=== PATIENT | male | born 1980 | race African-American/Black ===

== ENCOUNTER 2018-04-03 03:58 | Emergency (ER) | payer OTHER ==
[2018-04-03 04:14] VITALS: BP 127/87; PULSE 70; TEMP 98.7; BMI 26.4
[2018-04-03] MEDS ORDERED: ALBUTEROL SO4 2.5/IPRATROPIUM 0.5 INH SOL 3 ML VIAL.NEB. NEB ONE (04:15)
[2018-04-03] MEDS ORDERED: ALBUTEROL SO4 0.083% IH SOL 2.5 MG/3 ML VIAL.NEB. NEB ONE (04:23)
[2018-04-03] MEDS ORDERED: predniSONE 20 MG TABLET (UD) PO ONE (04:23)
[2018-04-03] MEDS ORDERED: predniSONE 20 MG TABLET (UD) ONE (04:27)
--- NOTE | 2018-04-03 04:27 | PDOC ---
History of Present Illness - General Chief Complaint: Pain Stated Complaint: bilat feet pain History Source: Patient Exam Limitations: No Limitations - History of Present Illness Initial Comments: 04/03/18 04:22 This is a 37 her old male who comes in complaining of exacerbation of his asthma. Patient said that he ran out of his albuterol. Patient otherwise denies any fevers, chills, chest pain, nausea vomiting or diarrhea. Patient is also complaining of bilateral foot pain. PAST MEDICAL HISTORY: no significant history PAST SURGICAL HISTORY: no significant history FAMILY HISTORY: no pertinant history SOCIAL HISTORY: Pt lives with family and is employed. MEDICATIONS: reviewed ALLERGIES: As per nursing notes Review of Systems General: No fevers or chills, no weakness, no weight loss HEENT: No change in vision. No sore throat,. No ear pain CardioVascular: No chest pain or shortness of breath Respiratory:No cough, or wheezing. Gastrointestinal: no nausea, vomitting, diarrhea or constipation, No rectal bleeding Genitourinary: No dysuria, hematuria, or frequency Musculoskeletal: No joint or muscle pain or swelling Neurologic: No headache, vertigo, dizziness or loss of consciousness Psychiatric: nor depression Skin: No rashes or easy bruising Endocrine: no increased thirst or abnormal weight change Allergic: no skin or latex allergy All other systems reviewed and normal Exam: General: Well-nourished well-developed individual, no acute distress HEENT: Throat: Normal, tonsils normal, no erythema or exudate Neck: Supple, no meningeal signs, no lymphadenopathy Eyes::Pupils equal reactive and round, extraocular motion intact Chest: Nontender to palpation Cardiac: S1-S2 normal, regular rate and rhythm, no murmurs rubs or gallops Respiratory: Mild bilateral expiratory wheezing Abdomen: Soft, nondistended, normal bowel sounds, nontender to palpation diffusely Extremities: Warm, dry, no cyanosis, clubbing, or edema, bilateral feet there is tinea pedis bilateral involving the toes and toenails. Skin: No rashes Neuro: Alert and oriented x3, CN II - XII intact, nonfocal exam with normal strength, normal sensation, normal reflexes, normal gait, Psych: Normal mood and affect 04/03/18 04:52 Patient's lungs are better post albuterol nebulizer. Prescription for nebulizers and pharmacy and prescription for prednisone. Patient was told to get some [id number] Tinactin or spray for his feet bilateral. Patient discharged home will follow-up with his primary care doctor. Past History - Past Medical History Allergies/Adverse Reactions: Allergies Allergy/AdvReac Type Severity Reaction Status Date / Time Penicillins Allergy Verified 04/03/18 04:10 Home Medications: Ambulatory Orders Albuterol 0.083% Nebulizer Hannah [Ventolin 0.083%] 1 neb NEB QID 06/28/15 Bupropion HCl [Wellbutrin Xl] 300 mg PO DAILY 06/28/15 Fluticasone Propionate [Flovent Hfa] 110 mcg IH DAILY 06/28/15 Oxycodone HCl [Oxycodone HCl ER] 10 mg PO DAILY 06/28/15 Oxycodone HCl [Oxycontin] 15 mg PO DAILY 06/28/15 Oxycodone HCl/Acetaminophen [Percocet 5-325 mg Tablet] 1 - 2 tab PO Q6H #20 tablet 06/28/15 Quetiapine Fumarate [Seroquel -] 100 mg PO DAILY 06/28/15 Salmeterol/Fluticasone [Advair 100Mcg/50Mcg -] 1 inh PO BID #1 inhaler 06/28/15 Albuterol Sulfate Inhaler - [Ventolin HFA Inhaler -] 1 - 2 inh PO Q4H #1 inhaler 04/03/18 Prednisone [Deltasone] 40 mg PO DAILY #8 tablet 04/03/18 Asthma: Yes COPD: No Psychiatric Problems: Yes - Suicide/Smoking/Psychosocial Hx Smoking History: Current some day smoker Have you smoked in the past 12 months: Yes Number of Cigarettes Smoked Daily: 5 Information on smoking cessation initiated: Yes 'Breaking Loose' booklet given: 04/03/18 Hx Alcohol Use: No Drug/Substance Use Hx: No Substance Use Type: None *Physical Exam - Vital Signs Last Vital Signs Temp Pulse Resp BP Pulse Ox 98.7 F 70 14 127/87 100 04/03/18 04:10 04/03/18 04:10 04/03/18 04:10 04/03/18 04:10 04/03/18 04:10 *DC/Admit/Observation/Transfer Diagnosis at time of Disposition: Asthma, Tinea pedis of both feet - Discharge Dispostion Disposition: HOME Condition at time of disposition: Good - Prescriptions Prescriptions: Albuterol Sulfate Inhaler - [Ventolin HFA Inhaler -] 1 - 2 inh PO Q4H #1 inhaler Prednisone [Deltasone] 40 mg PO DAILY #8 tablet - Referrals - Patient Instructions Additional Instructions: Use your inhaler 2 puffs as often as every 4-6 hours if needed for your asthma. Take prednisone 40 mg a day for 4 days. Purchase some [id number] Tinactin or antifungal spray or pallor and use as directed on the bottle. If symptoms do not improve follow-up with your doctor. Return to the emergency department immediately with ANY new, persistent or worsening symptoms. Continue any medications as previously prescribed by your physician. You should follow up with your primary doctor as soon as possible regarding today's emergency department visit. . Please make sure your doctor reviews the results of your emergency evaluation. Thank you for coming to the Emergency Department today for your care. It was a pleasure to see you today. Please note that your evaluation is INCOMPLETE until you follow-up with your doctor. - Post Discharge Activity
== END 2018-04-03 04:51 | disposition home or self-care (01) ==
LOC: FER 03:58
DX: J45.909 Unspecified asthma, uncomplicated (principal); B35.3 Tinea pedis; F17.210 Nicotine dependence, cigarettes, uncomplicated; Z59.0 Homelessness
CPT/HCPCS: 99282-25